=== PATIENT | female | born 1975 | race Caucasian/White ===

== ENCOUNTER 2016-10-19 15:05 | Emergency (ER) | payer OTHER ==
[~2016-10-19] VITALS: Ht 170.2 cm; Wt 111.6 kg
[~2016-10-19 15:05] MED LIST: INSU100C4 SQ; INSU100I13 SQ; INSU100I17 SQ; PROP20TA PO
[2016-10-19] MEDS: IBUPROFEN 400 MG TABLET. PO ONE (15:49)
[2016-10-19 15:55] VITALS: BP 152/91
--- NOTE | 2016-10-23 08:56 | ED.ADGEN ---
Past History Past Medical History: Diabetes Past Surgical History: No Surgical History Alcohol Use: None Drug Use: None Adult General Chief Complaint Chief Complaint Left forearm pain HPI HPI Patient is a 41-year-old right-handed female presents with left wrist and forearm pain. Pain starts wrist and radiates to midforearm and is worse with palpation, supination and pronation. Patient denies any injury. No other acute symptoms or complaints. Review of Systems Review of Systems ROS as per HPI. Current Medications Current Medications Current Medications Medications (Trade) Dose Ordered Sig/Radha Start Time Stop Time Status Last Admin Dose Admin Ibuprofen (Motrin) 400 mg 1X ONCE 10/19/16 15:40 10/19/16 15:41 DC 10/19/16 15:49 400 MG Allergies Allergies Allergies Coded Allergies Type Severity Reaction Last Updated Verified amoxicillin Allergy Mild 06/24/14 Yes Physical Exam Physical Exam Constitutional: Well developed, well nourished, no acute distress, non-toxic appearance. HENT: Normocephalic, atraumatic, bilateral external ears normal, oropharynx moist, no oral exudates, nose normal. Extremities: Left upper extremity, no motor weakness. Soft tissue tenderness over left thumb, dorsum of wrist and proximal forearm. No erythema or swelling. Pain reproduces with urination supination. Neurologic: Alert and oriented X 3, normal motor function, normal sensory function, no focal deficits noted. Psychologic: Affect normal, judgement normal, mood normal. Current Patient Data Vital Signs Vital Signs Date Time Temp Pulse Resp B/P Pulse Ox O2 Delivery O2 Flow Rate FiO2 10/19/16 15:55 104 20 152/91 97 Room Air 10/19/16 15:05 98.2 EKG EKG [] Radiology/Procedures Radiology/Procedures [] Impressions: 1. Left upper extremity pain Course & Med Decision Making Course & Med Decision Making Pertinent Labs and Imaging studies reviewed. (See chart for details) [Symptoms consistent with tendinitis. Recommend supportive care. ] Final Impression Final Impression [1. Left forearm and wrist pain] Problems: Dragon Disclaimer Dragon Disclaimer This electronic medical record was generated, in whole or in part, using a voice recognition dictation system. MIGUEL CERVANTES DO Oct 23, 2016 08:55
== END 2016-10-19 15:55 | disposition home or self-care (01) ==
LOC: ER 15:05
DX: M25.532 Pain in left wrist (principal); M79.632 Pain in left forearm; E11.9 Type 2 diabetes mellitus without complications; Z88.1 Allergy status to other antibiotic agents
CPT/HCPCS: 99283

== ENCOUNTER → 2016-10-25 | Outpatient (CLI) | payer OTHER ==
[2016-10-19 15:55] VITALS: BP 152/91
--- NOTE | 2016-10-25 10:29 | RAD ---
Cervical spine, 5 views, 10/25/2016: History: Shoulder and back pain The cervical vertebral heights are well-maintained. There is only minimal spurring in the lower cervical spine. There are mild degenerative changes involving scattered facet joints bilaterally. No fracture or dislocation is evident. The prevertebral soft tissues are unremarkable. IMPRESSION: 1. Mild degenerative change. 2. No acute abnormality is detected. Bilateral shoulders, 6 views, 10/25/2016: History: Shoulder pain No fracture or dislocation is identified. No significant arthritic change is evident. The periarticular soft tissues are unremarkable. IMPRESSION: No acute shoulder abnormality is detected. Lumbar spine, 5 views, 10/25/2016: History: Lumbar pain The lumbar vertebral heights are well-maintained. No fracture or dislocation is identified. The intervertebral disc spaces are well preserved. There are mild scattered marginal spurs. There are mild degenerative changes involving the facet joints in the lower lumbar spine. There is no evidence of spondylolysis. The paraspinous soft tissues are unremarkable.
== END | disposition home or self-care (01) ==
LOC: DXRADRC 09:04
PROVIDERS: ATTEND Internal Medicine
DX: M25.511 Pain in right shoulder (principal)
CPT/HCPCS: 72050; 72110; 73030

== ENCOUNTER → 2016-11-23 | Outpatient (CLI) | payer OTHER ==
--- NOTE | 2016-11-23 12:16 | RAD ---
Left foot radiographs History: Entire left foot pain for 2 days, no known injury. Comparison: None. Findings: AP, lateral, and oblique views of the left foot. No acute fracture or dislocation is identified. Large plantar calcaneal and Achilles tendon insertional enthesophytes are present. Impression: No acute osseous traumatic injury identified.
== END | disposition home or self-care (01) ==
LOC: DXRADRC 10:41
PROVIDERS: ATTEND Internal Medicine
DX: M79.672 Pain in left foot (principal)
CPT/HCPCS: 73630

== ENCOUNTER 2017-04-06 16:37 | Emergency (ER) | payer OTHER ==
[2017-04-06 16:37] VITALS: BP 164/92
--- NOTE | 2017-04-06 17:23 | PHYS DOC ---
Past History Past Medical History: Diabetes Past Surgical History: No Surgical History Alcohol Use: None Drug Use: None Adult General Chief Complaint Chief Complaint: abdominal pain HPI HPI Patient is a 41 year old female who presents with complaint of left lower quadrant abdominal pain. The patient states that she has been having pain and cramping that has been worsening throughout the day. The patient states that she is . The patient's last menstrual period was October 2016. Patient patient has history of polycystic ovarian syndrome and states that she did not know that she was able to become . The patient found out within the last 2 weeks she was and had a confirmatory test. Patient has a scheduled OB appointment but has not seen an OB since finding out she is . Patient denies any associated fevers with her symptoms. Patient rates her pain currently on my evaluation as 7 out of 10. Patient denies any abnormal vaginal bleeding or discharge. Review of Systems Review of Systems Constitutional: Denies fever or chills [] Eyes: Denies change in visual acuity, redness, or eye pain [] HENT: Denies nasal congestion or sore throat [] Respiratory: Denies cough or shortness of breath [] Cardiovascular: Denies chest pain or edema[] GI: Abdominal pain, denies nausea, vomiting, bloody stools or diarrhea [] : Pelvic pain, denies vaginal bleeding or discharge[] Musculoskeletal: Denies back pain or joint pain [] Integument: Denies rash or skin lesions [] Neurologic: Denies headache, focal weakness or sensory changes [] Allergies Allergies Allergies Coded Allergies Type Severity Reaction Last Updated Verified amoxicillin Allergy Mild 06/24/14 Yes Physical Exam Physical Exam Constitutional: Alert, obese, afebrile, appears in mild to moderate discomfort. [] HENT: Normocephalic, atraumatic, bilateral external ears normal, oropharynx moist, no oral exudates, nose normal. [] Eyes: PERRLA, EOMI, conjunctiva normal, no discharge. [] Neck: Normal range of motion, no tenderness, supple, no stridor. [] Cardiovascular:Heart rate regular rhythm, no murmur [] Lungs & Thorax: Bilateral breath sounds clear to auscultation [] Abdomen: Bowel sounds normal, soft, left lower quadrant tenderness to palpation with guarding, no rebound tenderness, no masses, no pulsatile masses. Pelvic: Normal external exam, mild erythema present along vaginal mucosa, cervical os closed with no purulent discharge or bleeding, no cervical motion tenderness, midline and left adnexal tenderness on bimanual exam[] Skin: Warm, dry, no erythema, no rash. [] Back: No tenderness, no CVA tenderness. [] Extremities: No tenderness, no cyanosis, no clubbing, ROM intact, no edema. [] Neurologic: Alert and oriented X 3, normal motor function, normal sensory function, no focal deficits noted. [] EKG EKG [] Radiology/Procedures Radiology/Procedures US= IUP 9 w5days, Rt. and Lt ovarian cysts. FHR = 173. - formal reading pending[] Course & Med Decision Making Course & Med Decision Making Pertinent Labs and Imaging studies reviewed. (See chart for details) The patient was started on IV fluids in the emergency department. Lab work and ultrasound imaging pending at time of sign out. Patient signed out to Dr. Horan at 1752. See Dr. Polanco chart for details. Pt. reports marked improvement of symptoms at time of discharge. Pt. to follow up cultures and labs with primary. vitamins. Tylenol for pain. Impression: 1. IUP- 9 w 5 day by US- 2. Ovarian Cysts- bilateral 3. BHCG = 57,051 4. Elevated Glucose- DM, 258 5. Hx. Polycystic Ovary. 6. B+ blood type 7. Abdomen Pain 8. Tobacco Use. Pt. to keep follow up with Dr.Sydnie Ob as schedule and Dr. Leonard. Review all ED findings. Take vitamins. Pt. instructed must have tighter control of glucose levels and diet. May need to go slide for Insulin. Clear fluid diet x 24hs. Must follow up all pending cultures. Pt. to follow up also with [facility] for assistance. This is patient's first . Encouraged patient to stop smoking. Pt. to return if any concerns. Dragon Disclaimer Dragon Disclaimer This chart was dictated in whole or in part using Voice Recognition software in a busy, high-work load, and often noisy Emergency Department environment. It may contain unintended and wholly unrecognized errors or omissions. Departure Departure: Impression: Primary Impression: Abdominal pain during Referrals: CJ LEONARD (PCP) Problem Qualifiers Primary Impression: Abdominal pain during Trimester: first trimester Qualified Codes: O26.891 - Other specified related conditions, first trimester; R10.9 - Unspecified abdominal pain PAULA POLANCO MD Apr 06, 2017 17:23 SANDRA HORAN MD Apr 06, 2017 19:15
[2017-04-06] MEDS ORDERED: IV NORMAL SALINE 1,000ML 1,000 ML IV SCH (17:30)
[2017-04-06 17:51] LABS: BASO # 0.1 x10^3/uL (0.0-0.2); BASO % 1 % (0-3); EOS # 0.3 x10^3/uL (0.0-0.7); EOS % 2 % (0-3); HEMATOCRIT 40.5 % (36.0-47.0); HEMOGLOBIN 14.3 g/dL (12.0-15.5); LYMPH % 28 % (24-48); MEAN CORPUSCULAR HEMOGLOBIN 30 pg (25-35); MEAN CORPUSCULAR HGB CONC 35 g/dL (31-37); MEAN CORPUSCULAR VOLUME 84 fL (79-100); MONO # 0.5 x10^3/uL (0.0-1.1); MONO % 5 % (0-9); NEUT % 65 % (31-73); PLATELET COUNT 239 x10^3/uL (140-400); RED BLOOD COUNT 4.85 x10^6/uL (3.50-5.40); RED CELL DISTRIBUTION WIDTH 14.1 % (11.5-14.5); WHITE BLOOD COUNT 10.9 x10^3/uL (4.0-11.0)
[2017-04-06 18:02] LABS: ALBUMIN 3.2 g/dL (3.4-5.0); ALK PHOS 47 U/L (46-116); ALT (SGPT) 18 U/L (14-59); ANION GAP 9 (6-14); AST (SGOT) < 5 U/L (15-37); BLOOD UREA NITROGEN 8 mg/dL (7-20); CALCIUM 9.4 mg/dL (8.5-10.1); CARBON DIOXIDE 24 mmol/L (21-32); CHLORIDE 100 mmol/L (98-107); CREATININE 0.7 mg/dL (0.6-1.0); DIRECT BILIRUBIN 0.1 mg/dL (0.0-0.2); GFR 93.2; GLUCOSE 258 mg/dL (70-99); MAGNESIUM 1.6 mg/dL (1.8-2.4); POTASSIUM 3.8 mmol/L (3.5-5.1); SODIUM 133 mmol/L (136-145); TOTAL BILIRUBIN 0.2 mg/dL (0.2-1.0); TOTAL PROTEIN 6.8 g/dL (6.4-8.2)
[2017-04-06 18:53] LABS: CLARITY,URINE CLEAR; COLOR,URINE YELLOW; GLUCOSE,URINE >=1000 mg/dL (NEG)
[2017-04-06 18:54] LABS: BACTERIA,URINE FEW /HPF (0-FEW); BILIRUBIN,URINE NEG (NEG); NITRITE,URINE NEG (NEG); RBC,URINE OCC /HPF (0-2); SQUAMOUS EPITHELIAL CELL,UR FEW /LPF; UROBILINOGEN,URINE 0.2 mg/dL (0.2 mg/dL); WBC,URINE 0 /HPF (0-4)
--- NOTE | 2017-04-06 18:55 | RAD ---
Examination: Obstetric ultrasound less than 14 weeks HISTORY: History of left-sided abdominal pain COMPARISON: None available FINDINGS: Examination limited due to patient body habitus. The uterus measures 10.1 x 8.4 x 6.7 cm. The right ovary measures 3.2 x 2.2 x 2.5 cm. The left ovary measures 2.1 x 2.1 x 2.2 cm Intrauterine gestational sac identified. A yolk sac is identified. A pole is identified with heart rate of 173 bpm. [place]-rump length measures 2.8 cm corresponding to 9 weeks and 5 days. Expected date of delivery by this ultrasound 11/04/2017 The given LMP is 11/16/2016 the clinical age of 20 weeks and 1 day. IMPRESSION: Single living intrauterine with heart rate of 173 bpm. By this ultrasound, the gestational age is 9 weeks and 5 days with expected date of delivery by this ultrasound 11/04/2017. (There is some discrepancy with the given LMP which states LMP of 11/16/2016, which makes clinical age by LMP 20 weeks and 1 day. Clinical correlation is recommended). Electronically signed by: Harjinder Coello MD (04/06/2017 6:52 PM) [facility]
[2017-04-07 19:12] LABS: HCV ANTIBODY <0.1 s/co ratio (0.0-0.9); HEP A IGM ABDY Negative (Negative)
[2017-04-09 14:09] LABS: CHLAMYDIA PROBE Negative (Negative)
== END 2017-04-06 20:15 | disposition home or self-care (01) ==
LOC: ER 16:37
DX: O34.81 Maternal care for other abnormalities of pelvic organs, first trimester (principal); N83.202 Unspecified ovarian cyst, left side; N83.201 Unspecified ovarian cyst, right side; R73.02 Impaired glucose tolerance (oral); E11.9 Type 2 diabetes mellitus without complications; O99.331 Smoking (tobacco) complicating pregnancy, first trimester; Z3A.09 9 weeks gestation of pregnancy; Z88.1 Allergy status to other antibiotic agents
CPT/HCPCS: 36415; 76801; 76817; 80048; 80074; 80076; 81001; 81025; 83735; 84702; 85025; 86592; 86593; 86701; 86702; 86703; 86900; 86901; 87491; 87535; 87591; 96360; 96361; 99285; Q0111; J7030

== ENCOUNTER 2017-07-31 22:53 | Emergency (ER) | payer OTHER ==
[~2017-07-31] VITALS: Ht 170.2 cm; Wt 126.1 kg
--- NOTE | 2017-08-01 00:13 | PHYS DOC ---
General Chief Complaint: EARACHE/EAR PAIN Stated Complaint: RIGHT SIDE EARACHE Time Seen by MD: 00:09 Source: patient Exam Limitations: no limitations Problems: History of Present Illness Initial Comments Patient is a 1, 26 weeks gestation 41-year-old female who comes to the ED with sore throat and ear pain. Patient states that she has diabetes but no other risk factors, she follows with an grounds foreman in [place]. She says she was admitted to [facility] last week with vaginal bleeding but those symptoms have subsided. She's had some nonspecific upper respiratory symptoms but today has had sore throat and severe right ear pain. She has a child at home ill with confirmed strep pharyngitis. No measured fevers, she's had a headache and body aches and is tolerating by mouth no nausea or vomiting. Denies abdominal pain vaginal discharge or bleeding, low back pain or pelvic pain. She does continue to smoke cigarettes despite knowing that this is harmful for . Timing/Duration: other Severity: moderate Location: ear (R), throat Prearrival Treatment: over the counter meds Modifying Factors: worse with coughing Associated Symptoms: cough, fever, nasal congestion/drainage, sore throat Allergies: Coded Allergies: amoxicillin (Verified Allergy, Mild, 06/24/14) Past Medical History Medical History: diabetes Surgical History: noncontributory LMP (Females 10-50): Social History Smoker: cigarettes Constitutional: see HPI Ears: see HPI Nose: denies clots, congestion, denies epistaxis Throat: see HPI, denies neck stiffness, denies difficulty with fluids Respiratory: denies cough, denies shortness of breath, denies wheezing Cardiovascular: denies chest pain, denies palpitations, denies syncope Gastrointestinal: denies abdominal pain, denies nausea, denies vomiting Musculoskeletal: denies back pain, denies joint swelling, denies neck pain Physical Exam General Appearance: mild distress (appears to be in pain) Eyes: bilateral eye normal inspection, bilateral eye PERRL, bilateral eye EOMI Ears: right ear other (serous fluid noted), left ear TM normal, bilateral ear auricle normal, bilateral ear canal normal Nose: normal inspection Mouth/Throat: other (pharynx is beefy red no exudate) Neck: supple, trachea midline, lymphadenopathy (R), lymphadenopathy (L) Cardiovascular/Respiratory: normal breath sounds, no respiratory distress Gastrointestinal: non-tender (gravid consistent with dates) 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 Patient states that her pain is severe and not controlled with [id number] medications. I discussed risks and benefits of pain medications with , patient states her pain is intolerable and agreed to short course of Tylenol 3. Signs and symptoms to monitor as well as indications for urgent return were discussed, patient's questions were answered and she expressed agreement and understanding with the treatment plan. She was advised to discontinue smoking and contact her grounds foreman in the morning. Departure Time of Disposition: 01:10 Disposition: 01 HOME, SELF-CARE Diagnosis: pharyngitis, right serous otitis, Condition: GOOD Patient Instructions: Medicines During , Serous Otitis Media Additional Instructions: Discontinue smoking, seek medical assistance if necessary. [id number] Tylenol and analgesic throat sprays as needed. Please review the patient education materials given by ED staff. Aggressive hydration with Gatorade and water. Prescription: Tylenol with codeine quantity 10, Zithromax Take medications with food. Call your grounds foreman today to advise of this emergency department visit. Return to ED with new or changing symptoms. ASHLEE SR DO Aug 01, 2017 00:13
[2017-08-01] MEDS ORDERED: ACET-704 PO (01:09)
[2017-08-01] MEDS ORDERED: AZIT250T PO (01:09)
[2017-08-01] MEDS ORDERED: ACETAMINOPHEN/CODEINE 300/30MG TABLET PO ONE (01:15)
[2017-08-01] MEDS ORDERED: ACETAMINOPHEN/CODEINE 300/30MG 4TABLET STARTPACK. PO ONE (01:17)
[2017-08-01 01:20] VITALS: BP 159/86
== END 2017-08-01 01:23 | disposition home or self-care (01) ==
LOC: ER 22:53
DX: O99.512 Diseases of the respiratory system complicating pregnancy, second trimester (principal); J02.9 Acute pharyngitis, unspecified; H65.91 Unspecified nonsuppurative otitis media, right ear; O99.333 Smoking (tobacco) complicating pregnancy, third trimester; O24.912 Unspecified diabetes mellitus in pregnancy, second trimester; F17.210 Nicotine dependence, cigarettes, uncomplicated; Z3A.26 26 weeks gestation of pregnancy
CPT/HCPCS: 87070; 87880; 99283

== ENCOUNTER → 2018-07-02 | Outpatient (CLI) | payer OTHER ==
[~2018-07-02] MED LIST changes: +ACET-704 PO; +AZIT250T PO
[2018-07-02 09:10] LABS: BASO % 1 % (0-3); EOS # 0.2 x10^3/uL (0.0-0.7); EOS % 4 % (0-3); HEMATOCRIT 45.1 % (36.0-47.0); HEMOGLOBIN 15.3 g/dL (12.0-15.5); LYMPH # 2.3 x10^3/uL (1.0-4.8); LYMPH % 37 % (24-48); MEAN CORPUSCULAR HEMOGLOBIN 29 pg (25-35); MEAN CORPUSCULAR HGB CONC 34 g/dL (31-37); MEAN CORPUSCULAR VOLUME 84 fL (79-100); MONO # 0.4 x10^3/uL (0.0-1.1); MONO % 6 % (0-9); NEUT # 3.3 x10^3uL (1.8-7.7); NEUT % 53 % (31-73); PLATELET COUNT 223 x10^3/uL (140-400); RED BLOOD COUNT 5.35 x10^6/uL (3.50-5.40); RED CELL DISTRIBUTION WIDTH 13.7 % (11.5-14.5); WHITE BLOOD COUNT 6.3 x10^3/uL (4.0-11.0)
[2018-07-02 09:20] LABS: ALBUMIN 3.4 g/dL (3.4-5.0); ALBUMIN/GLOBULIN RATIO 0.9 (1.0-1.7); CALCIUM 8.5 mg/dL (8.5-10.1); CREATININE 0.8 mg/dL (0.6-1.0); GFR 79.4; POTASSIUM 3.8 mmol/L (3.5-5.1); TOTAL BILIRUBIN 0.4 mg/dL (0.2-1.0)
[2018-07-02 12:51] LABS: FREE T4 1.27 ng/dL (0.76-1.46); THYROID STIM HORMONE (TSH) 0.469 uIU/mL (0.358-3.740)
[2018-07-02 19:13] LABS: T3 TOTAL 120 ng/dL (71-180)
[2018-07-02 20:09] LABS: HEMOGLOBIN A1C 12.3 % (4.8-5.6)
[2018-07-02 22:09] LABS: MICRO CREAT RATIO 199.4 mg/g creat (0.0-30.0); MICROALB RD UR 499.9 ug/mL (Not Estab.)
== END | disposition home or self-care (01) ==
LOC: LAB 08:17
PROVIDERS: ATTEND Internal Medicine
DX: E05.00 Thyrotoxicosis with diffuse goiter without thyrotoxic crisis or storm (principal); E11.65 Type 2 diabetes mellitus with hyperglycemia
CPT/HCPCS: 36415; 80053; 82043; 82570; 83036; 84439; 84443; 84480; 85025

== ENCOUNTER 2020-07-21 21:50 | Emergency (ER) | payer OTHER ==
[~2020-07-21] VITALS: Ht 170.2 cm; Wt 114.2 kg
[2020-07-21 22:05] VITALS: BP 178/99
[2020-07-21] MEDS ORDERED: CLIN300C8 PO (22:33)
--- NOTE | 2020-07-21 22:33 | PHYS DOC ---
Past History Past Medical History: Anxiety, Diabetes, Fibromyalgia, Hypertension, Hypothyroid, IBS, Ovarian Cyst, Other Past Surgical History: , Tonsillectomy, Other Alcohol Use: None Drug Use: None Adult General Chief Complaint Chief Complaint: TOOTH ACHE OR PAIN [facility] Patient is a 44-year-old female who presents to the emergency room with pain in her jaw on the left side after getting her teeth pulled. She had both of her canines pulled and the right 1 has not had any pain since the original extraction. She states the left one has been having pain pretty consistently since shortly after the extraction. She is sure to call her dentist and they have not been helpful. She states that the pain is unbearable. She has not been taking her narcotic pain medicine as she does not like the way it makes her feel. She is worried that the blood clot fell out and that she has dry socket. She otherwise feels well. She has not had any facial swelling. She has not had any kind of fevers. Review of Systems Review of Systems Complete ROS is negative unless otherwise documented in HPI Allergies Allergies Allergies Coded Allergies Type Severity Reaction Last Updated Verified amoxicillin Allergy Mild 06/24/14 Yes Physical Exam Physical Exam General: Awake, alert, NAD. Well Nourished, well hydrated. Cooperative HEENT: Atraumatic, EOMI, PERRL, airway patent, moist oral mucosa, 2 sites of extraction with the right 1 closed. Left upper jaw shows extraction with loss of blood clot consistent with dry socket. Neck: Supple, trachea midline Respiratory: CTA bilaterally, normal effort, no wheezing/crackles CV: RRR, no murmur, cap refill <2 GI: Soft, nondistended, nontender, no masses MSK: No obvious deformities Skin: Warm, dry, intact Neuro: A&O x3, speech NL, sensory and motor grossly intact, no focal deficits Psych: Normal affect, normal mood, not suicidal or homicidal Current Patient Data Vital Signs Vital Signs Date Time Temp Pulse Resp B/P (MAP) Pulse Ox O2 Delivery O2 Flow Rate FiO2 07/21/20 22:05 98.3 20 178/99 (125) 94 Room Air EKG EKG [] Radiology/Procedures Radiology/Procedures [] Heart Score Risk Factors: Risk Factors: DM, Current or recent (<one month) smoker, HTN, HLP, family history of CAD, obesity. Risk Scores: Risk Factors: DM, Current or recent (<one month) smoker, HTN, HLP, family h istory of CAD, obesity. Course & Med Decision Making Course & Med Decision Making Pertinent Labs and Imaging studies reviewed. (See chart for details) Patient is a 44-year-old female presents to the emergency room with dry socket. The extraction hole is very small at this time suggesting that it is trying to close. I did try to pack it with iodine gauze soaked in bupivacaine but was unsuccessful due to the size of the hole. At this time we will leave it open and have the patient follow-up with her dentist as soon as possible. We will place her on antibiotics. Dental block was done to help with pain relief. Patient's test results and vitals while in the ED were fully reviewed and discussed with the patient. Patient is stable and at this time does not need admission to the hospital. We have discussed strict return precautions and the importance of following up with their Primary Care Physician. Patient stated understanding and was given an opportunity to ask any questions. Patient is in agreement with plan. Dragon Disclaimer Dragon Disclaimer This electronic medical record was generated, in whole or in part, using a voice recognition dictation system. Departure Departure: Impression: Primary Impression: Dry socket Disposition: 01 DC HOME SELF CARE/HOMELESS Condition: STABLE Referrals: CJ LEONARD (PCP) Patient Instructions: Dental Dry Socket Scripts Clindamycin Hcl (CLINDAMYCIN HCL) 300 Mg Capsule 1 CAP PO TID for dry socket for 5 Days, #15 CAP Prov: LORRI CANDELARIA MD 07/21/20 LORRI CANDELARIA MD Jul 21, 2020 22:33
== END 2020-07-21 22:41 | disposition home or self-care (01) ==
LOC: ER 21:50
DX: M27.3 Alveolitis of jaws (principal); R68.84 Jaw pain; F41.9 Anxiety disorder, unspecified; E11.9 Type 2 diabetes mellitus without complications; M79.7 Fibromyalgia; I10 Essential (primary) hypertension; E03.9 Hypothyroidism, unspecified; K58.9 Irritable bowel syndrome, unspecified; Z98.890 Other specified postprocedural states; Z88.1 Allergy status to other antibiotic agents
CPT/HCPCS: 64400; 99284

== ENCOUNTER 2021-02-13 18:57 | Emergency (ER) | payer OTHER ==
[~2021-02-13] VITALS: Ht 170.2 cm; Wt 114.2 kg
[~2021-02-13 18:57] MED LIST changes: +CLIN300C9 PO
[2021-02-13 19:00] VITALS: BP 155/90
--- NOTE | 2021-02-13 19:15 | PHYS DOC ---
Past History Past Medical History: Anxiety, Diabetes, Fibromyalgia, Hypertension, Hypothyroid, IBS, Ovarian Cyst, Other Past Surgical History: , Tonsillectomy, Other Alcohol Use: None Drug Use: None Adult General HPI HPI Patient is a 45-year-old female who presents with a chief complaint of right foot tenderness and swelling that started this morning when she woke up that was not there last night. States that about 3 out of 10 in pain, dull and achy in nature with no radiation. States they were outside at a barbecue yesterday but does not remember any traumas or falls or hurting herself. Denies any recent travel, fevers, chest pain, shortness of breath, abdominal pain, nausea, vomiting. States she otherwise feels well. Review of Systems Review of Systems Review of systems otherwise unremarkable except noted in HPI Allergies Allergies Allergies Coded Allergies Type Severity Reaction Last Updated Verified amoxicillin Allergy Mild 06/24/14 Yes Physical Exam Physical Exam Constitutional: Well developed, well nourished, no acute distress, non-toxic appearance. [] HENT: Normocephalic, atraumatic, Eyes: conjunctiva normal, no discharge. [] Cardiovascular:Heart rate regular rhythm, no murmur [] Lungs & Thorax: Bilateral breath sounds clear to auscultation [] Extremities: Right foot circumferential mild swelling, warmth and erythema with no obvious deformities or bruising. No obvious lesions. Neurovascular exam intact. Neurologic: Alert and oriented X 3, normal motor function, normal sensory function, no focal deficits noted. [] Psychologic: Affect normal, judgement normal, mood normal. [] EKG EKG [] Radiology/Procedures Radiology/Procedures [] Study: XR FOOT_RIGHT 3 VIEWS Indication: Swelling and tenderness. Comparison: None. Findings: No acute fracture, discrete erosion or periostitis. Plantar calcaneal spur. Degenerative osteophyte formation at the dorsum of the navicular. No advanced forefoot arthrosis. No severe joint space narrowing. Soft tissue prominence along the dorsum of the foot primarily centered over the metatarsals. No retained radiopaque foreign body. Impression: Nonspecific soft tissue prominence along the dorsum of the foot most notably overlying the metatarsals. No retained radiopaque foreign body or acute osseous abnormality. Chronic observations as above. Electronically signed by: BIJAL WADE MD (02/13/2021 8:51 PM) [facility] Heart Score C/O Chest Pain: No Risk Factors: Risk Factors: DM, Current or recent (<one month) smoker, HTN, HLP, family history of CAD, obesity. Risk Scores: Risk Factors: DM, Current or recent (<one month) smoker, HTN, HLP, family history of CAD, obesity. Course & Med Decision Making Course & Med Decision Making Patient is 45-year-old female who presents with right foot tenderness and swelling for a day. Vital signs not concerning. Physical exam noted above. Patient denies need for any pain medicine at this time. Imaging with no acute osseous abnormalities. D-dimer normal. Started patient on clindamycin for cellulitis. Discussed all findings with patient. Advised on pain management at home. Advised on antibiotics. Advised to call primary care physician in the morning to update on ED visit and set up a follow-up. Gave return precautions to the ED. Patient grateful, verbalized understanding and agreed with plan of discharge. Dragon Disclaimer Dragon Disclaimer This electronic medical record was generated, in whole or in part, using a voice recognition dictation system. Departure Departure: Impression: Primary Impression: Cellulitis Additional Impression: Foot pain Disposition: HOME / SELF CARE / HOMELESS Condition: GOOD Referrals: CJ LEONARD (PCP) Patient Instructions: Cellulitis, RICE - Routine Care for Injuries Additional Instructions: Thank you for coming into the emergency department tonight and allowing us to take care of you. Please read all of the attached information very carefully to go back over what we discussed. You can use Tylenol, ibuprofen and ice as needed. Please take all your antibiotics as prescribed and until they are gone. Please call your primary care physician first thing in the morning to update on your ED visit and set up a follow-up as soon as you can. Please come back to the ED with new or concerning symptoms as discussed. Scripts Clindamycin Hcl (CLINDAMYCIN HCL) 300 Mg Capsule 1 CAP PO TID for cellulitis for 10 Days, #30 CAP Prov: CORRIE GONZALEZ MD 02/13/21 Problem Qualifiers CORRIE GONZALEZ MD Feb 13, 2021 19:15
[2021-02-13] MEDS ORDERED: CLINDAMYCIN HCL 150 MG CAPSULE PO ONE (20:45)
--- NOTE | 2021-02-13 20:54 | RAD ---
Study: XR FOOT_RIGHT 3 VIEWS Indication: Swelling and tenderness. Comparison: None. Findings: No acute fracture, discrete erosion or periostitis. Plantar calcaneal spur. Degenerative osteophyte f ormation at the dorsum of the navicular. No advanced forefoot arthrosis. No severe joint space narrow ing. Soft tissue prominence along the dorsum of the foot primarily centered over the metatarsals. No retai shania radiopaque foreign body. Impression: Nonspecific soft tissue prominence along the dorsum of the foot most notably overlying the metatarsal s. No retained radiopaque foreign body or acute osseous abnormality. Chronic observations as above. Electronically signed by: BIJAL WADE MD (02/13/2021 8:51 PM) [facility]
[2021-02-13] MEDS ORDERED: CLIN300C9 PO (21:11)
== END 2021-02-13 21:24 | disposition home or self-care (01) ==
LOC: ER 18:57
DX: L03.115 Cellulitis of right lower limb (principal); F41.9 Anxiety disorder, unspecified; E11.9 Type 2 diabetes mellitus without complications; M79.7 Fibromyalgia; I10 Essential (primary) hypertension; E03.9 Hypothyroidism, unspecified; K58.9 Irritable bowel syndrome, unspecified; Z88.1 Allergy status to other antibiotic agents
CPT/HCPCS: 36415; 73630; 85379; 99284